=== PATIENT | male | born 1950 | race American Indian/Alaskan Native ===

== ENCOUNTER 2016-10-06 16:14 | Emergency (ER) | payer OTHER ==
[2016-10-06] MEDS ORDERED: NACL 0.9% 1000 ML 1,000 ML IV ONE (17:02)
[2016-10-06] MEDS ORDERED: ZOFRAN IV ONE (18:19)
[2016-10-06] MEDS ORDERED: MORPHINE IV ONE (18:19)
--- NOTE | 2016-10-06 18:26 | Emergency Department Report ---
HPI - General Chief Complaint: Nausea/Vomiting/Diarrhea Time Seen by Provider: 10/06/16 18:06 - HPI HPI: Room 9 The patient is a 65-year-old male presenting with a chief complaint syncope. Patient states he was in his usual state of health today until 15:00 while having a bowel movement. Patient states she began to feel lightheaded so he stood up and then fell to the floor. The patient is uncertain if he lost consciousness or not. The patient states from the floor he called 911. Patient admits to nausea and vomiting. Patient denies fever. The patient states once he arrived to the ED he developed a headache in the frontal and occipital regions. Patient currently gives his headache a score of 8.5-9/10. Patient denies any other complaints outside of his headache Location: [see above] Duration: Constant since 15:00 Quality: Headache Severity: 8.5-9/10 Modifying factors: [see above] Context: [see above] Mode of transportation: EMS ED Past Medical Hx - Past Medical History Previous Medical History?: No Hx Hypertension: Yes - Surgical History Past Surgical History?: No - Family History Family history: no significant - Social History Smoking Status: Never Smoker Substance Use Type: Alcohol (occasional) ED Review of Systems ROS: Stated complaint: NAUSEA/EMESIS Other details as noted in HPI Comment: All other systems reviewed and negative Constitutional: denies: chills, fever Eyes: denies: eye pain, eye discharge, vision change ENT: denies: ear pain, throat pain Respiratory: denies: cough, shortness of breath, wheezing Cardiovascular: denies: chest pain, palpitations Endocrine: no symptoms reported Gastrointestinal: nausea, vomiting Genitourinary: denies: urgency, dysuria Musculoskeletal: denies: back pain, joint swelling, arthralgia Skin: denies: rash, lesions Neurological: headache Psychiatric: denies: anxiety, depression Hematological/Lymphatic: denies: easy bleeding, easy bruising Physical Exam - Physical Exam Vital Signs: Vital Signs 10/06/16 10/06/16 16:46 18:08 Temperature 95.6 F L Pulse Rate 93 H 75 Respiratory 24 20 Rate Blood Pressure 162/87 Blood Pressure 187/82 [Left] O2 Sat by Pulse 98 100 Oximetry Physical Exam: GENERAL: The patient is well-developed well-nourished ill lying on stretcher appearing to be in moderate discomfort. [] HEENT: Normocephalic. Atraumatic. Extraocular motions are intact. Patient has moist mucous membranes. NECK: Supple. The patient Complains of pain in the neck when he flexes CHEST/LUNGS: Clear to auscultation. There is no respiratory distress noted. HEART/CARDIOVASCULAR: Regular. There is no tachycardia. There is no gallop rub or murmur. ABDOMEN: Abdomen is soft, nontender. Patient has normal bowel sounds. There is no abdominal distention. SKIN: There is no rash. There is no edema. There is no diaphoresis. NEURO: The patient is awake, alert, and oriented. The patient is cooperative. The patient has no focal neurologic deficits. The patient has normal speech and cranial nerves II through XII grossly intact, no drift MUSCULOSKELETAL: There is no evidence of acute injury. ED Course Vital Signs 10/06/16 10/06/16 16:46 18:08 Temperature 95.6 F L Pulse Rate 93 H 75 Respiratory 24 20 Rate Blood Pressure 162/87 Blood Pressure 187/82 [Left] O2 Sat by Pulse 98 100 Oximetry - Consultations Consultation #1: 10/06/16 19:31 [facility] transfer line called 10/06/16 19:[address] Flores ([facility] [place] [facility])-will accept the patient pending bed availability. Transfer line states they will contact the supervisor [employer] and call me back 10/06/16 20:09 [facility] calls back and states that they will accept pt ED Medical Decision Making - Lab Data Result diagrams: 10/06/16 17:54 10/06/16 17:54 Laboratory Tests 10/06/16 10/06/16 10/06/16 17:54 17:54 17:54 WBC 13.1 H RBC 5.48 H Hgb 15.9 H Hct 49.9 H MCV 91 MCH 29 MCHC 32 RDW 12.5 L Plt Count 271 Lymph % (Auto) 23.3 [place] % (Auto) 7.5 H Eos % (Auto) 0.2 Baso % (Auto) 0.3 Lymph # 3.1 [place] # 1.0 H Eos # 0.0 Baso # 0.0 Seg Neutrophils % 68.7 Seg Neutrophils # 9.0 H PT 14.4 INR 1.13 VBG pH Sodium 140 Potassium 3.3 L Chloride 97.3 L Carbon Dioxide 23 Anion Gap 23 BUN 14 Creatinine 1.1 Estimated GFR > 60 BUN/Creatinine Ratio 12.72 Glucose 223 H POC Glucose Calcium 9.2 Total Bilirubin 0.3 AST 31 ALT 31 Alkaline Phosphatase 51 Total Protein 8.1 Albumin 4.6 Albumin/Globulin Ratio 1.3 10/06/16 10/06/16 17:54 18:14 WBC RBC Hgb Hct MCV MCH MCHC RDW Plt Count Lymph % (Auto) [place] % (Auto) Eos % (Auto) Baso % (Auto) Lymph # [place] # Eos # Baso # Seg Neutrophils % Seg Neutrophils # PT INR VBG pH 7.198 L* Sodium Potassium Chloride Carbon Dioxide Anion Gap BUN Creatinine Estimated GFR BUN/Creatinine Ratio Glucose POC Glucose 166 H Calcium Total Bilirubin AST ALT Alkaline Phosphatase Total Protein Albumin Albumin/Globulin Ratio - EKG Data -: EKG Interpreted by Me EKG shows normal: sinus rhythm Rate: normal - EKG Data When compared to previous EKG there are: previous EKG unavailable Interpretation: other (no ischemic changes seen) - Radiology Data Radiology results: report reviewed (ct head), image reviewed (ct head) ct head (read by radiologist)-extensive acute intraventricular hemorrhage. Possible trace amount of subdural hemorrhage along the tentorium bilaterally. The basal cisterns appear mildly faced. There is also concern for hydrocephalus , although prior studies are not available for comparison. - Differential Diagnosis ICH, meningitis, syncope Critical Care Time: Yes Critical care time in (mins) excluding proc time.: 30 Critical care attestation.: If time is entered above; I have spent that time in minutes in the direct care of this critically ill patient, excluding procedure time. ED Disposition Clinical Impression: Syncope, Hypertensive emergency, Intracranial hemorrhage Disposition: OP ADMITTED IP TO THIS HOSP Is pt being admited?: Yes Does the pt Need Aspirin: No Condition: Serious Instructions: Syncope (ED), Hypertension (ED) Referrals: PRIMARY CARE, [Primary Care Provider] - 3-5 Days Time of Disposition: 19:33 (awaiting acceptance)
[2016-10-06 18:29] LABS: Alanine Aminotransferase 31 units/L (7-56); Albumin 4.6 g/dL (3.9-5); Albumin/Globulin Ratio 1.3 %; Alkaline Phosphatase 51 units/L (35-129); Anion Gap 23 mmol/L; BUN/Creatinine Ratio 12.72; Bilirubin,Total 0.3 mg/dL (0.1-1.2); Blood Urea Nitrogen 14 mg/dL (9-20); Calcium 9.2 mg/dL (8.4-10.2); Carbon Dioxide 23 mmol/L (22-30); Chloride 97.3 mmol/L (98-107); Glucose 223 mg/dL (75-100); Potassium 3.3 mmol/L (3.6-5.0); Sodium 140 mmol/L (137-145); Total Protein 8.1 g/dL (6.3-8.2)
[2016-10-06 18:53] LABS: Basophils % (Auto) 0.3 % (0.0-1.8); Eosinophils % (Auto) 0.2 % (0.0-4.3); Hematocrit 49.9 % (35.5-45.6); Hemoglobin 15.9 gm/dl (11.8-15.2); Mean Corpuscular HGB Conc 32 % (32-34); Mean Corpuscular Hemoglobin 29 pg (28-32); Mean Corpuscular Volume 91 fl (84-94); Platelet Count 271 K/mm3 (140-440); Red Blood Count 5.48 M/mm3 (3.65-5.03); Red Cell Distribution Width 12.5 % (13.2-15.2); White Blood Count 13.1 K/mm3 (4.5-11.0)
--- NOTE | 2016-10-06 19:02 | Admit Criteria Form ---
Admission Criteria Documentation: STROKE: HEMORRHAGIC Clinical Indications for Admission to Inpatient Care (Place 'X' for any and all applicable criteria): Admission is indicated for ANY ONE of the following(1)(2)(3)(4): [X]I. Acute hemorrhagic (eg, intracerebral) stroke Extended stay beyond goal length of stay may be needed for(1)(2)(6) [ ]a) Surgical intervention (9) [ ]b) Major deficit [ ]c) Increased intracranial pressure [ ]d) Hydrocephalus [ ]e) Seizures [ ]f) Venous thromboembolism [ ]g) Severe electrolyte abnormality (eg, hypernatremia, hyponatremia) [ ]h) Hospital-acquired infection (eg, urinary tract infection, pneumonia) [ ]i) Comorbidities (heart failure, renal failure) The original [facility] content created by [facility] [employer] has been revised. The portions of the content which have been revised are identified through the use of italic text or in bold, and [facility] has neither reviewed nor approved the modified material. All other unmodified content is copyright [facility]. Please see references footnoted in the original [facility] [employer] edition 2016
[2016-10-06 19:03] LABS: INR 1.13 (0.87-1.13)
--- NOTE | 2016-10-06 19:21 | Cat Scan Report ---
FINAL REPORT PROCEDURE: CT HEAD/BRAIN WO CON TECHNIQUE: Computerized tomography of the head was performed without contrast material. HISTORY: headache, syncope COMPARISON: No prior studies are available for comparison. FINDINGS: There is extensive intraventricular hemorrhage, within bilateral lateral ventricles, 3rd ventricle, and 4th ventricle. Basilar cisterns appears somewhat effaced. High attenuation tracks along the tentorium bilaterally, and small amount of subdural hemorrhage cannot be fully excluded. No prior studies are available for comparison, however the ventricles appear mildly dilated, suggesting early hydrocephalus. No midline shift. Calvarium is intact. The visualized paranasal sinuses and mastoids are aerated. IMPRESSION: Extensive acute intraventricular hemorrhage. Possible trace amount of subdural hemorrhage along the tentorium bilaterally. The basilar cisterns appear mildly effaced. There is also concern for hydrocephalus, although prior studies are not available for comparison.
[2016-10-06] MEDS ORDERED: KEPPRA 1,000 MG/NS 0.75% 100ML 1,000 MG/100 ML BAG IV ONE (19:44)
[2016-10-06] MEDS ORDERED: CARDENE DRIP 40 MG/200 ML 40 MG/200 ML BAG IV SCH (20:00)
[2016-10-06] MEDS ORDERED: XYLOCAINE CARDIAC IV ONE ×2 (21:00→22:00)
[2016-10-06] MEDS ORDERED: QUELICIN ONE (21:00)
[2016-10-06] MEDS ORDERED: AMIDATE IV ONE ×2 (21:00→22:00)
[2016-10-06] MEDS ORDERED: QUELICIN IV ONE (22:00)
[2016-10-06 22:55] LABS: ISTAT Base Excess -8; ISTAT HCO3 18.5; ISTAT PCO2 38.3 (35-45); ISTAT PH 7.293 (7.35-7.45); ISTAT PO2 109 (80-105); ISTAT SO2 98; ISTAT TCO2 20
[2016-10-06 23:00] VITALS: BP 153/73
--- NOTE | 2016-10-07 09:32 | XRay Report ---
SINGLE VIEW CHEST: HISTORY: Possible sepsis. FINDINGS: Normal cardiomediastinal silhouette. Trachea is midline. No consolidation, pneumothorax or pleural effusion. IMPRESSION: No acute cardiopulmonary findings.
--- NOTE | 2016-10-07 11:36 | XRay Report ---
PORTABLE CHEST INDICATION: Status post intubation. COMPARISON: 5:30 PM earlier today. FINDINGS: Portable, frontal chest radiograph, 10:33 PM, 10/06/2016 demonstrates an endotracheal tube tip approximately 2.5 cm above the bairon. EKG leads now noted. No other significant interval change, allowing for the difference in technique/poorer inspiration. CONCLUSION: Interval uncomplicated intubation, as described. Please note that this exam is now presented to me for interpretation. Thank you for the opportunity to participate in this patient's care.
== END 2016-10-06 23:30 | disposition admitted as inpatient to this hospital (09) ==
LOC: ED 16:14
DX: I62.9 Nontraumatic intracranial hemorrhage, unspecified (principal); R55 Syncope and collapse; I10 Essential (primary) hypertension
CPT/HCPCS: 31500; 36415; 70450; 71010; 80053; 82140; 82803; 82805; 82962; 85025; 85610; 87040; 93005; 93010; 96365; 96366; 96375; 99291; J0330; J1953; J2001; J2270; J2405; 94002